=== PATIENT | female | born 2005 | race Asian ===

== ENCOUNTER 2024-05-01 12:54 | Emergency (ER) | payer OTHER, SELFPAY ==
--- NOTE | 2024-05-01 12:56 | ECG_ITS ---
Test Reason : chest pain Blood Pressure : / mmHG Vent. Rate : 081 BPM Atrial Rate : 081 BPM P-R Int : 142 ms QRS Dur : 080 ms QT Int : 388 ms P-R-T Axes : 075 051 037 degrees QTc Int : 450 ms Normal sinus rhythm with sinus arrhythmia Normal ECG No previous ECGs available Referred By: Generic ED Physician Electronically Signed By:DELIA MANNING MD
[2024-05-01 13:13] VITALS: BP 135/91; PULSE 79; RESP 18; TEMP 37; O2SAT 99; BMI 22.3
--- NOTE | 2024-05-01 13:14 | ED.ALLEREA ---
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 Took children's benadryl 12.5mg x1.5 with no improvement in her symptoms so she came to the ER for further evaluation. MD complaint: allergic reaction Onset (ago): minute(s) (45) Exposure: food Known history of allergy to: nuts Symptoms: difficulty swallowing, difficulty breathing, tongue swelling, nausea and vomiting Severity: moderate Treatment prior to arrival: benadryl Previous Allergic Reaction History: anaphylaxis Related Data Previous Rx's ?Medication ?Instructions ?Recorded albuterol sulfate 90 mcg/actuation 2 puff inhalation Q4-6H PRN 05/01/24 aerosol inhaler shortness of breath or wheezing #6.7 grams ondansetron 4 mg disintegrating 4 mg PO Q8H PRN nausea and 05/01/24 tablet vomiting #7 tabs Allergies Allergy/AdvReac Type Severity Reaction Status Date / Time 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/01/24 13:15 peanut Allergy Anaphylaxis Verified 05/01/24 13:15 [facility] Social History Social History Smoked in Last 30 Days: No Use of substances other than those prescribed or required for medical reasons: No Advance Directives: No Physical Exam ED Vital Signs: Vital Signs - 24 hr 05/01/24 13:13 05/01/24 16:00 05/01/24 17:50 Temperature 98.6 F Pulse Rate 79 70 71 Respiratory Rate 18 16 18 Blood Pressure 135/91 H Pulse Oximetry 99 100 Oxygen Delivery Method Room Air Room Air 05/01/24 17:51 05/01/24 18:58 05/01/24 19:02 Temperature 98.2 F 98.2 F 98.2 F Pulse Rate 94 113 H 113 H Respiratory Rate 14 16 16 Blood Pressure 110/73 109/61 109/61 Pulse Oximetry 97 100 100 Oxygen Delivery Method Room Air Room Air Room Air BMI result Body Mass Index 22.3 Course Reevaluation(s) Reevaluation #1: allergic reaction sxs improved after meds. patient developed N/V and abdominal pain along with SOB after eating crackers. labs done showing mild WBC 12, had gotten steroids. LFTs and lipase normal. abd exam benign given nebulizer treatment with improvement in SOB. given po ice chips and behzad rodriguez Time: 18:26 Reevaluation #2: feeling improved after neb and meds. tolerating po on re-evaluation. stable for d/c home Medications Administered Discontinued Medications Generic Name Dose Route Start Last Admin Trade Name Freq PRN Reason Stop Dose Admin Al Hydroxide/Mg Hydroxide 30 ml 05/01/24 15:14 05/01/24 15:19 Magnesium Hydrox/Alum Hydrox 30 Ml Oral.Susp PO 05/01/24 15:15 30 ml ONCE ONE Administration Albuterol Sulfate 2.5 mg 05/01/24 17:29 05/01/24 17:50 Albuterol Sulfate (0.083%) 2.5 Mg/3 Ml Vial.Neb INHALE 05/01/24 17:30 2.5 mg ONCE ONE Administration Belladonna Alkaloids/Phenobarbital 10 ml 05/01/24 15:15 05/01/24 15:19 Phenobarb/Hyoscy/Atropine/Scop 10 Ml Elixir PO 05/01/24 15:16 10 ml ONCE ONE Administration Diphenhydramine HCl 50 mg 05/01/24 13:37 05/01/24 13:51 Diphenhydramine Hcl 50 Mg/Ml Vial IVPUSH 05/01/24 13:38 50 mg ONCE ONE Administration Famotidine 20 mg 05/01/24 13:37 05/01/24 13:54 Famotidine/Pf 20 Mg/2 Ml Vial IVPUSH 05/01/24 13:38 20 mg ONCE ONE Administration Ketorolac Tromethamine 30 mg 05/01/24 16:58 05/01/24 17:13 Ketorolac Tromethamine 30 Mg/Ml Vial IVPUSH 05/01/24 16:59 30 mg ONCE ONE Administration Lidocaine HCl 15 ml 05/01/24 15:14 05/01/24 15:19 Lidocaine Hcl Viscous 2 % 15 Ml Solution MUCOUS MEM 05/01/24 15:15 15 ml ONCE ONE Administration Methylprednisolone Sodium Succinate 125 mg 05/01/24 13:37 05/01/24 13:53 Methylprednisolone Sod Succ 125 Mg/2 Ml Vial IVPUSH 05/01/24 13:38 125 mg ONCE ONE Administration Ondansetron HCl 4 mg 05/01/24 13:37 05/01/24 13:54 Ondansetron Hcl 4 Mg/2 Ml Vial IVPUSH 05/01/24 13:38 4 mg ONCE ONE Administration Medical Decision Making Medical Decision Making [facility] Narrative: 18 yo female with 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 no evidence of facial swelling, oral swelling, wheezing or DANELLE on arrival. she developed vomiting shortly after being triaged. Brought to treatment room and given IV zofran, medrol, benadryl, and pepcid with improvement in symptoms. she was monitored closely in the ER. Given GI cocktail as well. patient then developed N/V and abdominal pain after trial of PO. labs were checked that were reassuring. abd exam was benign. imaging deferred. low suspicion for acute abdominal process. no development of anaphylaxis. improved with treatment. monitored closely in the ER and re-evaluated at the bedside several times. she is feeling better. she is stable for d/c home. return precautions discussed. she has an epipen rx already Differential Diagnosis Differential Diagnoses: The differential diagnosis associated with the presentation includes allergic reaction, anaphylaxis, gastroenteritis, food poisoning Admission/Observation Consideration of admission/observation: Escalation of care including admission/observation considered Lab Data [facility] Lab Attestation statement: I reviewed the patient's lab results. mild leukocytosis, normal LFTs, negative UA 05/01/24 17:05 05/01/24 17:05 Labs: Lab Results 05/01/24 05/01/24 Range/Units 17:05 17:49 WBC 12.0 H (4.8-10.8) X10*3/uL RBC 4.42 (4.20-5.50) X10*6/uL Hgb 13.4 (12.0-16.0) g/dl Hct 39.4 (37.0-47.0) % MCV 89.1 (80.0-98.0) fL MCH 30.3 (27.0-33.0) pg MCHC 34.0 (31.0-35.0) g/dl RDW 13.2 (11.0-16.0) % Plt Count 368 (160-400) X10*3/uL MPV 10.4 (9.4-12.3) fL Immature Gran % (Auto) 0.3 (0.0-0.4) % Neut % (Auto) 91.7 H (45-73) % Lymph % (Auto) 7.5 L (20-40) % Mower % (Auto) 0.4 L (2-11) % Eos % (Auto) 0.0 (0-4) % Baso % (Auto) 0.1 (0-2) % Lymph # (Auto) 0.9 L (1.2-4.9) X10*3/uL Mower # (Auto) 0.1 (0.1-1.2) X10*3/uL Eos # (Auto) 0.0 (0.0-0.4) X10*3/uL Baso # (Auto) 0.0 (0.0-0.2) X10*3/uL Abs Immat Gran (auto) 0.03 (0.00-0.03) X10*3/uL Absolute Neuts (auto) 11.0 H (2.0-8.3) x10*3/uL Absolute Nucleated RBC 0.000 (0.0-0.012) X10*3/uL Nucleated RBC % (auto) 0.0 (0.0-0.2) /100WBC Smear Tech's Comments VERIFIED Sodium 138 (135-145) mmol/L Potassium 3.8 (3.3-5.1) mmol/L Chloride 107 (96-108) mmol/L Carbon Dioxide 21 L (22-29) mmol/L Anion Gap 14 (12-20) BUN 12 (9-16) mg/dL Creatinine 0.74 (0.5-1.4) mg/dL Estim Creat Clear Calc 100.3 Estimated GFR > 60 Random Glucose 124 H (60-115) mg/dL Calcium 9.5 (8.4-10.2) mg/dL Magnesium 1.9 (1.6-2.6) mg/dL Total Bilirubin 0.6 (0.0-1.0) mg/dL Direct Bilirubin 0.2 (0.0-0.5) mg/dL AST 18 (5-31) U/L ALT 12 (0-31) U/L Alkaline Phosphatase 39 (39-117) U/L Total Protein 7.5 (6.5-8.0) g/dL Albumin 4.2 (3.5-5.0) g/dL Lipase 17 (8-78) U/L Urine Color Yellow Urine Appearance Cloudy Urine pH 6.5 (5.0-9.0) Ur Specific [place] 1.025 (1.005-1.025) Urine Protein Negative (Neg-Trace) mg/dL Urine Glucose (UA) Negative (Negative) mg/dL Urine Ketones 15 (Negative) mg/dL Urine Blood Negative (Negative) Urine Nitrite Negative (Negative) Ur Leukocyte Esterase Moderate (2+) H (Negative) Urine RBC 0-2 (0-2) /HPF Urine WBC 11-20 H (0-5) /HPF Ur Squamous Epith Cells 11-20 (0-2) /HPF Urine Bacteria 2+ (None Seen) Hyaline Casts 0-2 (0-2) /LPF Urine Test NEGATIVE (NEGATIVE) Independent Interpretation I performed an independent interpretation of an: EKG Interpretation: ekg with normal sinus rhythm, hr 81 bpm, normal [place] interval, normal QTc, no ST segment elevations or depressions Independent Historian Clinical information obtained from an independent historian. History obtained from or confirmed by: Spouse Tests considered The following testing was considered but not selected: considered cxr Prescription Management I considered prescription management with: Other (prednisone) Chronic Conditions Patient?s care impacted by: Other (asthma) Critical Care Time Critical Care Time Critical Care Time: Yes Total Critical Care Time: 36 Attestation: I have personally provided critical care time exclusive of time spent on separately billable procedures. Time includes review of lab data, multiple bedside reassessments of airway, resp status, abd pain and monitoring for potential decompensation. Intervention performed as documented. Discharge Plan Discharge Clinical Impression: Allergic reaction Qualifiers: Encounter type: initial encounter Qualified Code(s): T78.40XA - Allergy, unspecified, initial encounter Patient Disposition: Home, Self-Care Instructions: General Allergic Reaction (ED) Additional Instructions: take 50 mg of benadryl later tonight before bed If you develop new or worsening symptoms call 911 or come back to the ER for further evaluation. Prescriptions: New ondansetron 4 mg tablet,disintegrating 4 mg PO Q8H PRN (Reason: nausea and vomiting) Qty: 7 0RF albuterol sulfate 90 mcg/actuation HFA aerosol inhaler 2 puff inhalation Q4-6H PRN (Reason: shortness of breath or wheezing) Qty: 6.7 0RF Interventions: ED Discharge Assessment Last Done: 05/01/24 19:02 Discharge Date/Time: 05/01/24 19:02 Print Language: Turkish
[2024-05-01] MEDS: diphenhydrAMINE HCL 50 MG/ML VIAL IVPUSH (13:51)
[2024-05-01] MEDS: methylPREDNISolone Sod Succ 125 MG/2 ML VIAL IVPUSH (13:53)
[2024-05-01] MEDS: Famotidine/PF 20 MG/2 ML VIAL IVPUSH (13:54)
[2024-05-01] MEDS: ondansetron HCL 4 MG/2 ML VIAL IVPUSH (13:54)
--- NOTE | 2024-05-01 13:59 | PC.NURSE ---
alert and oriented. comes in to ED with allergic reaction, likely from nuts cross contaminated on an item from bakery. Pt nauseous and vomiting. reports itchy throat. No tongue swelling, no difficulty breathing. speaking in complete sentences. medicated per MAR
[2024-05-01] MEDS: PHENobarb/Hyoscy/Atropine/Scop 10 ML ELIXIR PO (15:19)
[2024-05-01] MEDS: Magnesium Hydrox/Alum Hydrox 30 ML ORAL.SUSP PO (15:19)
[2024-05-01] MEDS: Lidocaine HCl Viscous 2 % 15 ML SOLUTION MUCOUS MEM (15:19)
[2024-05-01 16:00] VITALS: PULSE 70; RESP 16; O2SAT 100
[2024-05-01 17:12] LABS: Basophils Percent Auto 0.1 % (0-2); Hematocrit 39.4 % (37.0-47.0); Hemoglobin 13.4 g/dl (12.0-16.0); Imm Gran Abs Auto 0.03 X10*3/uL (0.00-0.03); Imm Gran Pct Auto 0.3 % (0.0-0.4); Lymphocytes Absolute Auto 0.9 X10*3/uL (1.2-4.9); Lymphocytes Percent Auto 7.5 % (20-40); MANUAL DIFF FLAG SCAN; Mean Corpuscular Hemoglobin 30.3 pg (27.0-33.0); Mean Corpuscular Volume 89.1 fL (80.0-98.0); Mean Platelet Volume 10.4 fL (9.4-12.3); Monocytes Absolute Auto 0.1 X10*3/uL (0.1-1.2); Monocytes Percent Auto 0.4 % (2-11); Neutrophils Percent Auto 91.7 % (45-73); Platelet Count 368 X10*3/uL (160-400); Red Blood Count 4.42 X10*6/uL (4.20-5.50); Red Cell Distribution Width 13.2 % (11.0-16.0); SCAN SMEAR FLAG 1
[2024-05-01] MEDS: Ketorolac Tromethamine 30 MG/ML VIAL IVPUSH (17:13)
[2024-05-01 17:27] LABS: Alanine Aminotransferase 12 U/L (0-31); Albumin Level 4.2 g/dL (3.5-5.0); Alkaline Phosphatase 39 U/L (39-117); Anion Gap 14 (12-20); Aspartate Amino Transferase 18 U/L (5-31); Bilirubin Direct 0.2 mg/dL (0.0-0.5); Bilirubin Total 0.6 mg/dL (0.0-1.0); Blood Urea Nitrogen 12 mg/dL (9-16); Calcium 9.5 mg/dL (8.4-10.2); Carbon Dioxide 21 mmol/L (22-29); Chloride 107 mmol/L (96-108); Creatinine Clr Calc Pharmacy 100.3; Estimated Glomerular Filt Rate > 60; Glucose Random 124 mg/dL (60-115); Lipase 17 U/L (8-78); Magnesium 1.9 mg/dL (1.6-2.6); Potassium 3.8 mmol/L (3.3-5.1); Sodium 138 mmol/L (135-145); Total Protein 7.5 g/dL (6.5-8.0)
[2024-05-01 17:42] LABS: SLIDE REVIEW VERIFIED
[2024-05-01 17:50] VITALS: PULSE 71; RESP 18; O2SAT 99
[2024-05-01] MEDS: Albuterol Sulfate (0.083%) 2.5 MG/3 ML VIAL.NEB INHALE (17:50)
[2024-05-01 17:51] VITALS: BP 110/73; PULSE 94; RESP 14; TEMP 36.8; O2SAT 97
[2024-05-01 17:56] LABS: Appearance Urine Cloudy; Color Urine Yellow; Glucose Urine UA Negative (Negative); Leukocyte Esterase Urine Moderate (2+) (Negative); Nitrite Urine Negative (Negative); PH 6.5 (5.0-9.0); Specific Gravity - Urine 1.025 (1.005-1.025); UMIC TRIGGER UACC YES; UPreg QC Valid YES; Urine Blood Negative (Negative); Urine Ketones 15 mg/dL (Negative); Urine Pregnancy NEGATIVE (NEGATIVE); Urine Protein Negative (Neg-Trace)
[2024-05-01 17:58] LABS: Bacteria Urine 2+ (None Seen); Hyaline Casts Urine 0-2 /LPF (0-2); RBC Urine 0-2 /HPF (0-2); UACC Culture Trigger YES
[2024-05-01 18:58] VITALS: BP 109/61; PULSE 113; RESP 16; TEMP 36.8; O2SAT 100
[2024-05-01 19:02] VITALS: BP 109/61; PULSE 113; RESP 16; TEMP 36.8; O2SAT 100
== END 2024-05-01 19:02 | disposition home or self-care (01) ==
PROVIDERS: Physician Assistant; Emergency Provider Emergency Medicine Emergency Medical Services
DX: T78.40XA Allergy, unspecified, initial encounter (principal); R06.02 Shortness of breath; R11.2 Nausea with vomiting, unspecified; X58.XXXA Exposure to other specified factors, initial encounter
CPT/HCPCS: 36415; 80048; 80076; 81001; 81025; 83690; 83735; 85025; 87086; 93005; 94640; 96374; 96375; 99284; 99285; J1200; J1885; J2405; J2919

== ENCOUNTER → 2024-05-01 12:56 | Outpatient (BNV) | payer OTHER, SELFPAY | PROVIDERS: Emergency Provider Emergency Medicine Emergency Medical Services; Visit Provider Internal Medicine Cardiovascular Disease | DX: R07.9 Chest pain, unspecified (principal) | CPT/HCPCS: 93010 ==